=== PATIENT | male | born 1995 | race Caucasian/White ===

== ENCOUNTER 2024-06-09 23:43 | Emergency (ER) | payer OTHER ==
[~2024-06-09] VITALS: Ht 175.3 cm; Wt 66.0 kg
[2024-06-09 23:48] VITALS: BP 126/86; PULSE 110; RESP 20; TEMP 98.4; O2SAT 100
[2024-06-09 23:52] VITALS: O2SAT 100
== END 2024-06-10 00:08 | disposition left against medical advice (07) ==
LOC: ER 23:43
DX: R68.89 Other general symptoms and signs (principal); Z53.21 Procedure and treatment not carried out due to patient leaving prior to being seen by health care provider